=== PATIENT | female | born 1970 | race African-American/Black ===

== ENCOUNTER 2016-10-20 20:26 | Emergency (ER) | payer SELFPAY ==
[~2016-10-20] VITALS: Ht 167.6 cm; Wt 70.0 kg
[~2016-10-20 20:26] MED LIST: IBUP800T23 PO; ROBA750T3 PO
[2016-10-20 20:29] VITALS: BP 143/83; PULSE 74; RESP 16; TEMP 98.1; O2SAT 98
--- NOTE | 2016-10-20 21:57 | PD ---
HPI Chief Complaint: Chest Pain Time Seen by Provider: 21:57 Travel History International Travel<30 days: No Contact w/Intl Traveler<30days: No Traveled to known affect area: No History of Present Illness HPI 45-year-old Afro-Italian female coming in with 2 day history of right-sided anterior chest discomfort which she woke up with 2 days ago. Patient states it is gotten progressively worse over the past 2 days. Patient states it is worse with certain movements especially with the right arm and shoulder. Patient points to the area along the right sternal border, and states it hurts when she pushes on it. Patient denies shortness of breath, cough, fever, or weakness. Patient has no nausea, vomiting, or heartburn. Patient denies recent injury or increase in exercise or activities. She states it worsen while sleeping last evening and has progressed through the day today. Patient has not taken anything for it. She denies any rash in the area. She is allergic to doxycycline. PFSH Past Medical History Blood Disorders: No Cerebrovascular Accident: No Diabetes: No Diminished Hearing: No Myocardial Infarction: No Seizures: No Ulcer: No ?: Unknown LMP: 3 MO AGO Tubal Ligation: Yes Social History Alcohol Use: Yes (OCC) Tobacco Use: No (Not verbalizing) Substance Use: No Allergies-Medications (Allergen,Severity, Reaction): Coded Allergies: Doxycycline (Verified Allergy, Severe, Shortness of Breath, 10/20/16) Reported Meds & Prescriptions Reported Meds & Active Scripts Active No Active Prescriptions or Reported Medications Review of Systems Except as stated in HPI: all other systems reviewed are Neg General / Constitutional: No: Fever, Chills Eyes: No: Visual changes HENT: No: Headaches Cardiovascular: Positive: Chest Pain or Discomfort (see history of present illness) Respiratory: Positive: Pleuritic Pain, No: Cough, Shortness of Breath, Wheezing, Sneezing Gastrointestinal: No: Abdominal Pain Genitourinary: No: Dysuria Musculoskeletal: Positive: Pain (see history present illness.), No: Myalgias, Arthralgias, Limited ROM Skin: No Rash Neurologic: No: Weakness Psychiatric: No: Depression Endocrine: No: Polydipsia Hematologic/Lymphatic: No: Easy Bruising Physical Exam Narrative GENERAL: Patient appears in mild distress. SKIN: Warm and dry. Normal color. Normal turgor. No signs of rash. HEAD: Atraumatic. Normocephalic. EYES: Pupils equal and round. No scleral icterus. No injection or drainage. ENT: No nasal bleeding or discharge. Mucous membranes pink and moist. Pharynx is normal. Airway is patent. NECK: Trachea midline. No JVD. Nontender. Full range of motion. CARDIOVASCULAR: Regular rate and rhythm. No murmurs gallops or rubs. RESPIRATORY: No accessory muscle use. Clear to auscultation. Breath sounds equal bilaterally. Patient has tenderness along the anterior thoracic ribs along the sternal border consistent with costochondritis. There is no crepitus or deformity. GASTROINTESTINAL: Abdomen soft, non-tender, nondistended. Hepatic and splenic margins not palpable. MUSCULOSKELETAL: Extremities without clubbing, cyanosis, or edema. No obvious deformities. NEUROLOGICAL: Awake and alert. No obvious cranial nerve deficits. Motor grossly within normal limits. Five out of 5 muscle strength in the arms and legs. Normal speech. PSYCHIATRIC: Appropriate mood and affect; insight and judgment normal. Data Data Last Documented VS Vital Signs Date Time Temp Pulse Resp B/P Pulse Ox O2 Delivery O2 Flow Rate FiO2 10/20/16 20:29 98.1 74 16 143/83 98 Room Air Orders Prednisone (Deltasone) (10/20/16 22:15) Ketorolac Inj (Toradol Inj) (10/20/16 22:15) Chest, Single Ap (10/20/16 23:07) [facility] Medical Decision Making Medical Screen Exam Complete: Yes Emergency Medical Condition: Yes Differential Diagnosis Rib pain. Thoracic wall strain. Costochondritis. Narrative Course Patient appears in no acute distress. I feel this patient has classic costochondritis on the right side. I do not suspect a PE or pneumonia. I do not suspect cardiac component. Chest x-ray is performed. Patient is given 60 mg Toradol IM as well as 40 mg prednisone by mouth. Diagnosis Primary Impression: Acute costochondritis Referrals: Primary Care Physician Patient Instructions: Costochondritis (ED), General Instructions Med/Other Pt SpecificInfo: Prescription(s) given Scripts No Active Prescriptions or Reported Meds Disposition: 01 DISCHARGE HOME Condition: Stable Cuong Tatum Oct 20, 2016 21:57
[2016-10-20] MEDS ORDERED: KETOROLAC TROMETHAMINE 60 MG/2 ML (IM) VIAL IM ONE (22:15)
[2016-10-20] MEDS ORDERED: predniSONE 20 MG TAB PO ONE (22:15)
[2016-10-20] MEDS ORDERED: PRED20 PO (23:56)
[2016-10-20] MEDS ORDERED: EXTR500C PO (23:56)
--- NOTE | 2016-10-21 00:36 | RADRPT ---
EXAM DATE/TIME: 10/20/2016 23:17 [facility] COMPARISON: CHEST SINGLE AP, December 18, 2015, 4:24. INDICATIONS : Chest pain. MEDICAL HISTORY : None. SURGICAL HISTORY : None. ENCOUNTER: Initial ACUITY: 1 day PAIN SCORE: 4/10 LOCATION: Right chest FINDINGS: A single view of the chest demonstrates the lungs to be symmetrically aerated without evidence of mas s, infiltrate or effusion. The cardiomediastinal contours are unremarkable. Osseous structures are intact. CONCLUSION: 1. No acute cardiopulmonary disease. Dayron Worthington MD on October 21, 2016 at 0:34 Board Certified Radiologist. This report was verified electronically.
== END 2016-10-21 01:28 | disposition home or self-care (01) ==
LOC: NEPE 20:26
DX: M94.0 Chondrocostal junction syndrome [Tietze] (principal)
CPT/HCPCS: 71010; 96372; 99284; J1885; J7512

== ENCOUNTER 2017-01-06 05:14 | Emergency (ER) | payer SELFPAY ==
[~2017-01-06] VITALS: Ht 165.1 cm; Wt 68.0 kg
[~2017-01-06 05:14] MED LIST changes: +EXTR500C PO; -IBUP800T23 PO; +PRED20 PO; -ROBA750T3 PO
[2017-01-06 05:19] VITALS: BP 166/87; PULSE 70; RESP 14; TEMP 97.7; O2SAT 100
[2017-01-06] MEDS ORDERED: SODIUM CHLOR 0.9% 1000 ML INJ 1,000 ML IV ONE (05:56)
[2017-01-06] MEDS ORDERED: ONDANSETRON HCL 4 MG/2 ML VIAL IVP ONE (06:00)
[2017-01-06] MEDS ORDERED: SODIUM CHLORIDE 0.9% FLUSH 10 ML FLUSH IVF PRN (06:00)
[2017-01-06 06:10] VITALS: BP 145/91; PULSE 65; RESP 18
[2017-01-06 06:23] LABS: AUTOMATED NEUTROPHIL # 3.3 TH/MM3 (1.8-7.7); BASOPHIL # 0.1 TH/MM3 (0-0.2); BASOPHIL % 0.8 % (0.0-2.0); EOSINOPHIL # 0.3 TH/MM3 (0-0.4); EOSINOPHIL % 5.1 % (0.0-4.0); HEMATOCRIT 38.5 % (35.0-46.0); HEMO FLAGS DIFF FINAL; MEAN CELL VOLUME 78.7 FL (80.0-100.0); MEAN CORPUSCULAR HEMOGLOBIN 25.9 PG (27.0-34.0); MEAN CORPUSCULAR HGB CONC 32.9 % (32.0-36.0); NEUT % 52.1 % (16.0-70.0); PLATELET COUNT 219 TH/MM3 (150-450); RED CELL DISTRIBUTION WIDTH 15.7 % (11.6-17.2); WHITE BLOOD COUNT 6.4 TH/MM3 (4.0-11.0)
--- NOTE | 2017-01-06 06:51 | RADRPT ---
EXAM DATE/TIME: 01/06/2017 06:13 [facility] COMPARISON: CHEST SINGLE AP, October 20, 2016, 23:17. INDICATIONS : Nausea, vomiting, and general illness. MEDICAL HISTORY : None. SURGICAL HISTORY : None. ENCOUNTER: Initial ACUITY: 1 day PAIN SCORE: 0/10 LOCATION: Bilateral chest FINDINGS: Portable AP view of the chest demonstrates a normal-sized cardiac silhouette. No effusion, consolidat ion, or pneumothorax is visualized. The bones and soft tissues demonstrate no acute abnormality. CONCLUSION: No acute cardiopulmonary abnormality is identified. Ricardo Marie MD on January 06, 2017 at 6:49 Board Certified Radiologist. This report was verified electronically.
--- NOTE | 2017-01-06 07:16 | PD ---
HPI Chief Complaint: GI Complaint Time Seen by Provider: 05:42 Travel History International Travel<30 days: No Contact w/Intl Traveler<30days: No Traveled to known affect area: No History of Present Illness HPI The patient is 46. She arrives complaining of nausea. She has vomited but has nonbloody emesis. She's had no vomiting pain. She does report decreased urination. She's had no dysuria. She reports a cough for the past month occasionally productive. She also reports intermittent rhinorrhea for the past few weeks. 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 She was sent home. She denies drugs and alcohol. She has no past medical or surgical history. She takes no medication time. She's had no chest pain or shortness of breath. No fever. [facility] Past Medical History Medical History: Denies Significant Hx Blood Disorders: No Cerebrovascular Accident: No Diabetes: No Diminished Hearing: No Myocardial Infarction: No Seizures: No Ulcer: No ?: Not Tubal Ligation: Yes Social History Alcohol Use: Yes (OCC) Tobacco Use: No (never) Substance Use: No Allergies-Medications (Allergen,Severity, Reaction): Coded Allergies: Doxycycline (Verified Allergy, Severe, Shortness of Breath, 01/06/17) Reported Meds & Prescriptions Reported Meds & Active Scripts Active No Active Prescriptions or Reported Medications Review of Systems Except as stated in HPI: all other systems reviewed are Neg General / Constitutional: No: Fever Physical Exam Narrative GENERAL: 46 yo F WNWD NAD SKIN: Warm and dry. HEAD: Atraumatic. Normocephalic. EYES: Pupils equal and round. No scleral icterus. No injection or drainage. ENT: No nasal bleeding or discharge. Mucous membranes pink and moist. NECK: Trachea midline. No JVD. CARDIOVASCULAR: Regular rate and rhythm. RESPIRATORY: No accessory muscle use. Clear to auscultation. Breath sounds equal bilaterally. GASTROINTESTINAL: Abdomen soft, non-tender, nondistended. Hepatic and splenic margins not palpable. MUSCULOSKELETAL: Extremities without clubbing, cyanosis, or edema. No obvious deformities. NEUROLOGICAL: Awake and alert. No obvious cranial nerve deficits. Motor grossly within normal limits. Five out of 5 muscle strength in the arms and legs. Normal speech. PSYCHIATRIC: Appropriate mood and affect; insight and judgment normal. Data Data Last Documented VS Vital Signs Date Time Temp Pulse Resp B/P Pulse Ox O2 Delivery O2 Flow Rate FiO2 01/06/17 07:42 60 127/77 62 150/91 67 158/83 01/06/17 06:10 18 01/06/17 05:19 97.7 100 Room Air VS reviewed Orders Electrocardiogram (01/06/17 05:56) Basic Metabolic Panel (Bmp) (01/06/17 05:56) Complete Blood Count With Diff (01/06/17 05:56) Magnesium (Mg) (01/06/17 05:56) Ckmb (Isoenzyme) Profile (01/06/17 05:56) Troponin I (01/06/17 05:56) Chest, Single Ap (01/06/17 05:56) Ecg Monitoring (01/06/17 05:56) Iv Access Insert/Monitor (01/06/17 05:56) Oximetry (01/06/17 05:56) Oxygen Administration (01/06/17 05:56) Ondansetron Inj (Zofran Inj) (01/06/17 06:00) Sodium Chloride 0.9% Flush (Ns Flush) (01/06/17 06:00) Sodium Chlor 0.9% 1000 Ml Inj (Ns 1000 M (01/06/17 05:56) Orthostatic Vital Signs (01/06/17 05:56) Urinalysis - C+S If Indicated (01/06/17 07:20) CKMB (01/06/17 06:10) CKMB% (01/06/17 06:10) Labs Laboratory Tests Test 01/06/17 01/06/17 06:10 07:40 White Blood Count 6.4 TH/MM3 Red Blood Count 4.90 MIL/MM3 Hemoglobin 12.7 GM/DL Hematocrit 38.5 % Mean Corpuscular Volume 78.7 FL Mean Corpuscular Hemoglobin 25.9 PG Mean Corpuscular Hemoglobin 32.9 % Concent Red Cell Distribution Width 15.7 % Platelet Count 219 TH/MM3 Mean Platelet Volume 9.3 FL Neutrophils (%) (Auto) 52.1 % Lymphocytes (%) (Auto) 32.0 % Monocytes (%) (Auto) 10.0 % Eosinophils (%) (Auto) 5.1 % Basophils (%) (Auto) 0.8 % Neutrophils # (Auto) 3.3 TH/MM3 Lymphocytes # (Auto) 2.0 TH/MM3 Monocytes # (Auto) 0.6 TH/MM3 Eosinophils # (Auto) 0.3 TH/MM3 Basophils # (Auto) 0.1 TH/MM3 CBC Comment DIFF FINAL Differential Comment Sodium Level 140 MEQ/L Potassium Level 3.8 MEQ/L Chloride Level 109 MEQ/L Carbon Dioxide Level 23.7 MEQ/L Anion Gap 7 MEQ/L Blood Urea Nitrogen 10 MG/DL Creatinine 0.63 MG/DL Estimat Glomerular Filtration 123 ML/MIN Rate Random Glucose 86 MG/DL Calcium Level 9.5 MG/DL Magnesium Level 2.0 MG/DL Total Creatine Kinase 156 U/L Creatine Kinase MB 1.5 NG/ML Troponin I LESS THAN 0.02 NG/ML Urine Color YELLOW Urine Turbidity HAZY Urine pH 5.5 Urine Specific [place] 1.020 Urine Protein TRACE mg/dL Urine Glucose (UA) NEG mg/dL Urine Ketones NEG mg/dL Urine Occult Blood NEG Urine Nitrite NEG Urine Bilirubin NEG Urine Urobilinogen LESS THAN 2.0 MG/DL Urine Leukocyte Esterase NEG Urine RBC 1 /hpf Urine WBC 3 /hpf Urine Squamous Epithelial 3 /hpf Cells Urine Bacteria RARE /hpf Urine Hyaline Casts 4 /lpf Urine Mucus FEW /lpf Microscopic Urinalysis Comment CULT NOT INDICATED MDM Medical Decision Making Medical Screen Exam Complete: Yes Emergency Medical Condition: Yes Medical Record Reviewed: Yes Differential Diagnosis Anemia, electrolyte imbalance, dehydration, renal failure Narrative Course EKG shows a sinus rhythm with first-degree AV block normal axis rate 60 CBC & BMP Diagram 01/06/17 06:10 Tn < 0.02 UA: No UTI CXR: No dense consolidation Pt comfortable. Upon reassessment her primary concern is persistent cough. We' ll provide albuterol inhaler. Without fever or leukocytosis, PNA very unlikely. Return precautions discussed. Pt ready for discharge. Diagnosis Primary Impression: Cough Referrals: Primary Care Physician 2 days Additional Instructions: You have a choice when it comes to health care, and we are glad that you chose [facility]. Hopefully, we have met your expectations on today's visit. You are welcome to return to [facility] at any time, as we are committed to meeting the health care needs of our community. Med/Other Pt SpecificInfo: Prescription(s) given Scripts No Active Prescriptions or Reported Meds Disposition: DISCHARGE HOME Condition: Stable Coe,Dannie C. MD Jan 06, 2017 07:16
[2017-01-06 07:31] LABS: ANION GAP 7 MEQ/L (5-15); BICARBONATE 23.7 MEQ/L (21.0-32.0); BLOOD UREA NITROGEN 10 MG/DL (7-18); CHLORIDE 109 MEQ/L (98-107); GLOMERULAR FILTRATION RATE 123 ML/MIN (>89); POTASSIUM 3.8 MEQ/L (3.5-5.1); SODIUM (NA) 140 MEQ/L (136-145)
[2017-01-06 07:34] LABS: CREATINE KINASE 156 U/L (26-192)
[2017-01-06 07:42] VITALS: BP_SYST 127; BP_SYST 150; BP_SYST 158; BP_DIAS 77; BP_DIAS 83; BP_DIAS 91
[2017-01-06 07:46] LABS: CKMB 1.5 NG/ML (0.5-3.6)
[2017-01-06 08:10] LABS: BACTERIA, URINE RARE /hpf; BLOOD, URINE NEG (NEG); GLUCOSE,URINE NEG (NEG); HYALINE CAST, URINE 4 /lpf (RARE); KETONE, URINE NEG (NEG); MUCUS URINE FEW /lpf (OCC); NITRITE,URINE NEG (NEG); PH, URINE 5.5 (5.0-8.5); SQUAMOUS EPITHELIAL CELL URINE 3 /hpf (0-5); URINE COLOR YELLOW (YELLW/STRAW)
[2017-01-06 08:12] LABS: COMMENT (UR) CULT NOT INDICATED; CULTURE IF INDICATED CULT NOT INDICATED
[2017-01-06 08:58] VITALS: BP 132/76
--- NOTE | 2017-01-07 00:12 | EKG ---
Date Performed: 01/06/2017 Time Performed: 06:19:39 PTAGE: 46 years EKG: Sinus rhythm WITH FIRST DEGREE AV BLOCK ABNORMAL ECG PREVIOUS TRACING : 12/18/2015 04.40 DOCTOR: Jose Carrington Interpretating Date/Time 01/07/2017 00:10:08
== END 2017-01-06 09:12 | disposition home or self-care (01) ==
LOC: NEPC 05:14
DX: R05 Cough (principal); R11.2 Nausea with vomiting, unspecified; J34.89 Other specified disorders of nose and nasal sinuses; R94.31 Abnormal electrocardiogram [ECG] [EKG]
CPT/HCPCS: 71010; 80048; 81001; 82550; 82552; 83735; 84484; 85025; 93005; 96361; 96374; 99284; J2405; J7030

== ENCOUNTER 2017-02-26 04:59 | Emergency (ER) | payer SELFPAY ==
[2017-02-26 05:00] VITALS: BP 127/81; PULSE 65; RESP 16; TEMP 97.9; O2SAT 99
--- NOTE | 2017-02-26 05:22 | PD ---
HPI Chief Complaint: Laceration/Skin Injury Time Seen by Provider: 05:21 Travel History International Travel<30 days: No Contact w/Intl Traveler<30days: No Traveled to known affect area: No History of Present Illness HPI 46 year old female with no significant medical history presents to the ED for evaluation of Left 4th digit laceration. Pt states she was cutting her bagel when she slipped; lacerating the finger. Reports mild pain. States she is unable to stop the bleeding. Denies any alterations in sensation. No limitation in range of motions. Not up to date on her tetanus REPLACED BY [facility] Past Medical History Medical History: Denies Significant Hx Blood Disorders: No Cerebrovascular Accident: No Diabetes: No Diminished Hearing: No Myocardial Infarction: No Seizures: No Ulcer: No ?: Not Tubal Ligation: Yes Social History Alcohol Use: Yes (OCC) Tobacco Use: No (never) Substance Use: No Allergies-Medications (Allergen,Severity, Reaction): Coded Allergies: Doxycycline (Verified Allergy, Severe, Shortness of Breath, 02/26/17) Reported Meds & Prescriptions Reported Meds & Active Scripts Active No Active Prescriptions or Reported Medications Review of Systems Except as stated in HPI: all other systems reviewed are Neg Physical Exam Narrative GENERAL: Well nourished female pt in no acute distress SKIN: Warm and dry. 1 cm laceration on the volar surface of the L 4th digit. HEAD: Normocephalic. EYES: No scleral icterus. No injection or drainage. NECK: Supple, trachea midline. No JVD or lymphadenopathy. CARDIOVASCULAR: Regular rate and rhythm without murmurs, gallops, or rubs. RESPIRATORY: Breath sounds equal bilaterally. No accessory muscle use. GASTROINTESTINAL: Abdomen soft, non-tender, nondistended. MUSCULOSKELETAL: No cyanosis, or edema. No limitation in range of motion. No alteration in sensation. Cap refill WNL BACK: Nontender without obvious deformity. No CVA tenderness. Data Data Last Documented VS Vital Signs Date Time Temp Pulse Resp B/P Pulse Ox O2 Delivery O2 Flow Rate FiO2 02/26/17 05:00 97.9 65 16 127/81 99 Room Air Orders Tetanus/Diphtheria Tox Adult (Tetanus/Di (02/26/17 05:30) MDM Medical Decision Making Medical Screen Exam Complete: Yes Emergency Medical Condition: Yes Medical Record Reviewed: Yes Differential Diagnosis laceration superficial versus deep versus abrasion versus avulsion Narrative Course 46 year old female presents to the ED for evaluation of L 4th digit lac. Pt is right handed. The laceration is fairly superficial, but opens with flexion of the PIP joint. Wound is cleansed and approximated with steri strips. Pt is updated on her tetanus and counseled on care. She agrees to return immediately with any acute worsening of symptoms Procedures Procedure Narrative LACERATION LOCATION: L 4th digit LENGTH: 1 cm NUMBER OF STITCHES/ANNE:steri strips REPAIR: The area of the laceration was prepped with Betadine. The wound was copiously irrigated and explored without evidence of foreign body, tendon injury or neurovascular injury. The wound was closed using [-]. This was a [-] layer repair. A sterile dressing was applied. The patient was advised to keep the dressing clean and dry. Patient tolerated the procedure well. Diagnosis Primary Impression: Laceration of left ring finger Referrals: Primary Care Physician Patient Instructions: Finger Laceration (ED), General Instructions Additional Instructions: Elevate to reduce pain and swelling Keep the area clean and dry You may wash her hands Do not apply ointment Return immediately to the emergency department with any acute worsening of symptoms Med/Other Pt SpecificInfo: No Change to Meds Scripts No Active Prescriptions or Reported Meds Disposition: 01 DISCHARGE HOME Condition: Stable Blanca Basurto February 26, 2017 05:22
[2017-02-26] MEDS ORDERED: TETANUS/DIPHTHERIA TOXOID ADULT 0.5 ML VIAL IM ONE (05:30)
== END 2017-02-26 05:45 | disposition home or self-care (01) ==
LOC: NEPK 04:59
DX: S61.215A Laceration without foreign body of left ring finger without damage to nail, initial encounter (principal); Z23 Encounter for immunization; W26.0XXA Contact with knife, initial encounter; Y93.G1 Activity, food preparation and clean up; Y92.009 Unspecified place in unspecified non-institutional (private) residence as the place of occurrence of the external cause; Y99.8 Other external cause status
CPT/HCPCS: 90471; 90714

== ENCOUNTER 2017-07-11 22:39 | Emergency (ER) | payer SELFPAY ==
[2017-07-11 22:40] VITALS: BP 165/84; PULSE 75; RESP 16; TEMP 98.1; O2SAT 100
[2017-07-11] MEDS ORDERED: predniSONE 50 MG TAB PO ONE (23:00)
[2017-07-11] MEDS ORDERED: diphenhydrAMINE HCL 50 MG CAP PO ONE (23:00)
--- NOTE | 2017-07-11 23:04 | PD ---
HPI Chief Complaint: Skin Problem Time Seen by Provider: 22:52 Travel History International Travel<30 days: No Contact w/Intl Traveler<30days: No Traveled to known affect area: No History of Present Illness HPI 46-year-old female presents the emergency department with itchy welt the rash which started yesterday and has progressed over the last 24 hours. Patient denies any specific new exposures, but may have used a different fabric softener on her current close that she just started wearing. She denies difficulty swallowing or wheezing. She's had progressively increased itching, erythema, and welts in a generalized fashion. No fever, chills, or other constitutional symptoms. She is allergic to doxycycline. [facility] Past Medical History Blood Disorders: No Cerebrovascular Accident: No Diabetes: No Diminished Hearing: No Myocardial Infarction: No Seizures: No Ulcer: No ?: Not Tubal Ligation: Yes Social History Alcohol Use: Yes (OCC) Tobacco Use: No (never) Substance Use: No Allergies-Medications (Allergen,Severity, Reaction): Coded Allergies: doxycycline (Unverified Allergy, Severe, Shortness of Breath, 07/11/17) Reported Meds & Prescriptions Reported Meds & Active Scripts Active No Active Prescriptions or Reported Medications Review of Systems Except as stated in HPI: all other systems reviewed are Neg General / Constitutional: No: Fever Eyes: No: Visual changes HENT: No: Headaches Cardiovascular: No: Chest Pain or Discomfort Respiratory: No: Shortness of Breath Gastrointestinal: No: Abdominal Pain Genitourinary: No: Dysuria Musculoskeletal: No: Pain Skin: Positive Rash, Positive Itching Neurologic: No: Weakness Psychiatric: No: Depression Endocrine: No: Polydipsia Hematologic/Lymphatic: No: Easy Bruising Physical Exam Narrative GENERAL: Patient appears in mild distress SKIN: Warm and dry.. Normal turgor. Patient has generalized erythematous rash with hives and some of the body creases consistent with atopic dermatitis and hives. HEAD: Atraumatic. Normocephalic. EYES: Pupils equal and round. No scleral icterus. No injection or drainage. ENT: No nasal bleeding or discharge. Mucous membranes pink and moist. Pharynx is clear. Airway is patent. NECK: Trachea midline. Supple and nontender. CARDIOVASCULAR: Regular rate and rhythm. RESPIRATORY: No accessory muscle use. Clear to auscultation. Breath sounds equal bilaterally. MUSCULOSKELETAL: Extremities without clubbing, cyanosis, or edema. No obvious deformities. NEUROLOGICAL: Awake and alert. No obvious cranial nerve deficits. Motor grossly within normal limits. Five out of 5 muscle strength in the arms and legs. Normal speech. PSYCHIATRIC: Appropriate mood and affect; insight and judgment normal. Data Data Last Documented VS Vital Signs Date Time Temp Pulse Resp B/P (MAP) Pulse Ox O2 Delivery O2 Flow Rate FiO2 07/11/17 22:40 98.1 75 16 165/84 (111) 100 Room Air Orders Orders Diphenhydramine (Benadryl) (07/11/17 23:00) Prednisone (Deltasone) (07/11/17 23:00) MDM Medical Decision Making Medical Screen Exam Complete: Yes Emergency Medical Condition: Yes Differential Diagnosis Rash. Hives. Atopic dermatitis. Allergic reaction. Narrative Course Patient is felt to be medically stable at time of exam. Patient is given Benadryl 50 mg by mouth as well as 40 mg prednisone by mouth. Patient will be continued on prednisone 20 mg twice a day 7 days. Patient is continue on Benadryl 25 mg every 6 hours when necessary itch. Patient is advised to use Caladryl lotion topically as needed. Patient to follow up if symptoms do not improve or worsen over the next several days as discussed. Diagnosis Primary Impression: Allergic reaction Qualified Codes: T78.40XA - Allergy, unspecified, initial encounter Additional Impression: Acute urticaria Referrals: Primary Care Physician Patient Instructions: General Instructions, Urticaria (ED), Moderate Sedation ( ED) Additional Instructions: Patient is given Benadryl 50 mg by mouth as well as 40 mg prednisone by mouth. Patient will be continued on prednisone 20 mg twice a day 7 days. Patient is continue on Benadryl 25 mg every 6 hours when necessary itch. Patient is advised to use Caladryl lotion topically as needed. Patient to follow up if symptoms do not improve or worsen over the next several days as discussed. Med/Other Pt SpecificInfo: Prescription(s) given Scripts No Active Prescriptions or Reported Meds Disposition: 01 DISCHARGE HOME Condition: Stable Cuong Tatum Jul 11, 2017 23:04
[2017-07-11] MEDS ORDERED: DIPH25CA PO (23:06)
[2017-07-11] MEDS ORDERED: PRED20 PO (23:06)
== END 2017-07-11 23:28 | disposition home or self-care (01) ==
LOC: NEPD 22:39
DX: L50.0 Allergic urticaria (principal)
CPT/HCPCS: 99284; J7512; Q0163

== ENCOUNTER 2017-09-23 20:12 | Emergency (ER) | payer SELFPAY ==
[~2017-09-23] VITALS: Ht 165.1 cm; Wt 70.0 kg
[~2017-09-23 20:12] MED LIST changes: +DIPH25CA PO; -EXTR500C PO
[2017-09-23 20:17] VITALS: BP 147/86; PULSE 86; RESP 16; TEMP 98.9; O2SAT 99
--- NOTE | 2017-09-23 21:05 | PD ---
HPI Chief Complaint: Laceration/Skin Injury Time Seen by Provider: 20:50 Travel History International Travel<30 days: No Contact w/Intl Traveler<30days: No Traveled to known affect area: No History of Present Illness HPI 46-year-old [id number] black female presents to emergency department with a laceration to her left hand which she sustained attempting to open a window. She states that she accidentally locked herself out and felt that she could open the window but unfortunately the pain of glass broke as she was attempting to push it up. She is up-to-date with immunizations. She denies any numbness, tingling or weakness. Pain is minimal. No other injuries. PFSH Past Medical History Medical History: Denies Significant Hx Blood Disorders: No Cerebrovascular Accident: No Diabetes: No Diminished Hearing: No Myocardial Infarction: No Seizures: No Ulcer: No Tetanus Vaccination: < 5 Years ?: Not Tubal Ligation: Yes Past Surgical History Surgical History: No Previous Surgery Social History Alcohol Use: Yes (OCC) Tobacco Use: No (never) Substance Use: No Allergies-Medications (Allergen,Severity, Reaction): Coded Allergies: doxycycline (Unverified Allergy, Severe, Shortness of Breath, 09/23/17) Reported Meds & Prescriptions Reported Meds & Active Scripts Active No Active Prescriptions or Reported Medications Review of Systems General / Constitutional: No: Fever Eyes: No: Visual changes HENT: No: Headaches Cardiovascular: No: Chest Pain or Discomfort Respiratory: No: Shortness of Breath Gastrointestinal: No: Abdominal Pain Genitourinary: No: Dysuria Musculoskeletal: No: Pain Skin: No Rash Neurologic: No: Weakness Psychiatric: No: Depression Endocrine: No: Polydipsia Hematologic/Lymphatic: No: Easy Bruising Physical Exam Narrative GENERAL: This is a well-nourished, well-developed patient, in no apparent distress. SKIN: No rashes, ecchymoses or lesions. Warm and dry. HEAD: Atraumatic. Normocephalic. EYES: PERRL, EOMI, no discharge or injection. No scleral icterus. EARS: Clear NOSE: Nasal turbinates appear normal. THROAT: Mucosa pink and moist. Airway patent. NECK: Trachea midline. supple, moves head freely. LUNGS: Clear to auscultation. CV: Regular in rhythm. ABDOMEN: Soft nontender. EXT: No clubbing cyanosis or edema. Patient has a 3 cm laceration to the hypothenar eminence of the left hand. No foreign body. Neurovascular intact. The laceration goes just into the subcutaneous tissue. Patient is able to move her fingers freely. She has intact median/ulnar/radial nerves. Data Data Last Documented VS Vital Signs Date Time Temp Pulse Resp B/P (MAP) Pulse Ox O2 Delivery O2 Flow Rate FiO2 09/23/17 20:17 98.9 86 16 147/86 (106) 99 Room Air MDM Medical Decision Making Medical Screen Exam Complete: Yes Emergency Medical Condition: Yes Medical Record Reviewed: Yes Differential Diagnosis MDM: High Differential diagnoses: Fracture, sprain, strain, dislocation, contusion, neurovascular injury Narrative Course Patient's laceration is close to sutures. Procedures Procedure Narrative LACERATION LOCATION: Left hypothenar eminence LENGTH: 3 cm NUMBER OF STITCHES/ANNE: Single running REPAIR: The area of the laceration was prepped with Betadine and sterilely draped. The laceration was infiltrated with 1% lidocaine. The wound was copiously irrigated and explored without evidence of foreign body, tendon injury or neurovascular injury. The wound was closed using 5-0 proline. This was a simple single layer repair. A sterile dressing was applied. The patient was advised to keep the dressing clean and dry. Patient tolerated the procedure well. Diagnosis Primary Impression: Laceration of left hand Qualified Codes: S61.412A - Laceration without foreign body of left hand, initial encounter Patient Instructions: General Instructions Additional Instructions: Rest. Elevation. Daily wound care with soap, water, Neosporin. Tylenol or Advil for pain. Sutures out in 10-12 days. Return to the ER if any problems. Med/Other Pt SpecificInfo: No Meds Exist/No RX given, Wound Care Scripts No Active Prescriptions or Reported Meds Disposition: 01 DISCHARGE HOME Condition: Stable Everette Kim Sep 23, 2017 21:05
[2017-09-23] MEDS ORDERED: LIDOCAINE HCL 1% 50 ML VIAL INFIL ONE (21:15)
== END 2017-09-23 21:25 | disposition home or self-care (01) ==
LOC: NEPD 20:12
DX: S61.412A Laceration without foreign body of left hand, initial encounter (principal); W25.XXXA Contact with sharp glass, initial encounter; Z88.8 Allergy status to other drugs, medicaments and biological substances
CPT/HCPCS: 12002; 99282